=== PATIENT | male | born 1955 | race Caucasian/White ===

== ENCOUNTER 2022-11-09 14:09 | Emergency (ER) | payer MEDICARE, BC, SELFPAY ==
[2022-11-09] VITALS (10 sets, daily range): BP systolic 146–182; BP diastolic 75–99; PULSE 53–65; RESP 16–20; TEMP 37.1; O2SAT 93–99; BMI 33.9
--- NOTE | 2022-11-09 14:23 | DI.RAD.S_ITS ---
PROCEDURE: XR CHEST 1V INDICATIONS: chest pain TECHNIQUE: One view of the chest was acquired. COMPARISON: None. FINDINGS: Surgical changes and devices: None. Lungs and pleura: Lungs are clear. No pleural effusions or pneumothorax. Mediastinum: Mediastinal contours appear normal. Heart size is mildly prominent. Bones and chest wall: No suspicious bony lesions. Overlying soft tissues appear unremarkable. IMPRESSION: Portable chest within normal limits for age. Dictated by: Katarina Mckenna M.D. on 11/09/2022 at 14:42 Approved by: Katarina Mckenna M.D. on 11/09/2022 at 14:42
[2022-11-09 15:08] LABS: Alanine Aminotransferase 48 IU/L (<50); Albumin 4.2 g/dL (3.5-5.0); Albumin Globulin Ratio 1.4 (1.0-2.8); Alkaline Phosphatase 74 U/L (38-126); Aspartate Aminotransferase 40 IU/L (17-59); BUN Creatinine Ratio 15.8 (6-22); Bilirubin Total 0.7 mg/dL (0.2-1.3); Blood Urea Nitrogen 16 mg/dL (9-20); Calcium 8.9 mg/dL (8.4-10.2); Carbon Dioxide 24 mmol/L (22-32); Chloride 108 mmol/L (98-107); Creatine Kinase 132 U/L (55-170); Estimated Glomerular Filt Rate > 60 mL/min (>60); Globulin 2.9 g/dL (1.7-4.1); Glucose 89 mg/dL (80-110); HEMOLYSIS 26 (0-50); Lipase 130 U/L (23-300); Magnesium 1.9 mg/dL (1.6-2.3); Potassium 4.3 mmol/L (3.4-5.1); Sodium 139 mmol/L (137-145); Total Protein 7.1 g/dL (6.3-8.2)
[2022-11-09 15:18] LABS: Troponin I < 0.012 ng/mL (0.01-0.034)
[2022-11-09 15:20] LABS: Prothrombin Time 11.5 SECONDS (10.1-12.7)
[2022-11-09 15:22] LABS: PTT Partial Thromboplastin Tim 29 SECONDS (26-36)
[2022-11-09 15:28] LABS: Add Manual Diff / Slide Review NO; Basophils Absolute Auto 0 /uL (0-100); Basophils Percent Auto 0.2 % (0-2); Eosinophils Absolute Auto 0 /uL (0-450); Eosinophils Percent Auto 0.9 % (2-4); Hematocrit 38.6 % (41-53); Hemoglobin 13.2 g/dL (13.5-17.5); Lymphocytes Absolute Auto 800 /uL (1100-4500); Lymphocytes Percent Auto 14.8 % (25-40); Mean Corpuscular HGB Conc 34.2 % (30-36); Mean Corpuscular Hemoglobin 30.9 PG (26-34); Mean Corpuscular Volume 90.5 fL (80-100); Monocytes Absolute Auto 600 /uL (0-900); Monocytes Percent Auto 10.2 % (3-14); Neutrophils Absolute Auto 4000 /uL (1500-7000); Neutrophils Percent Auto 73.9 % (50-75); Platelet Count 166 X10^3/uL (150-400); Red Blood Cell Count 4.27 X10^6/uL (4.5-5.9); Red Cell Distribution Width 12.9 % (11.6-14.8); White Blood Cell Count 5.4 X10^3/uL (4.5-11.0)
[2022-11-09 17:59] LABS: Troponin I < 0.012 ng/mL (0.01-0.034)
--- NOTE | 2022-11-09 18:58 | ED_ITS ---
HPI - Chest Pain General Chief Complaint: Chest Pain Stated Complaint: chest pain/High BP/ HX heart issues Time Seen by Provider: 11/09/22 18:03 Source: patient Mode of arrival: Ambulatory Limitations: no limitations History of Present Illness HPI narrative: Patient is a 67-year-old male. Has a known history of coronary artery disease. Had a HI about a year and a half ago. Has had stents since then had the middle of this year. He is nitro at home. Has a history of high blood pressure. He states that he was at home. 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 Was gone up and down a flight of stairs. Started to have some chest discomfort that has been consistent since about 0900 hours this morning. He did take some nitroglycerin with potentially some relief. No shortness of breath. He did take his blood pressure and it was elevated. No fevers. No abdominal pain or nausea vomiting. No diaphoresis. No lower extremity swelling. Related Data Allergies Allergy/AdvReac Type Severity Reaction Status Date / Time No Known Drug Allergies Allergy Verified 11/09/22 14:17 Review of Systems Constitutional Constitutional: Reports system reviewed and no additional complaints, except as documented Cardiovascular Cardiovascular: Reports system reviewed and no additional complaints, except as documented Respiratory Respiratory: Reports system reviewed and no additional complaints, except as documented Gastrointestinal Gastrointestinal: Reports system reviewed and no additional complaints, except as documented Integumentary/Breasts Skin/Breast: Reports system reviewed and no additional complaints, except as documented Neurologic Neurologic: Reports system reviewed and no additional complaints, except as documented Patient History Social History Smoking Status: Never smoker Smoking Status: Never smoker alcohol intake frequency: a few times a week Alcohol type: wine Substance Use Type: does not use Exam Initial Vital Signs Initial Vital Signs: Vital Signs Temperature 98.8 F 11/09/22 14:17 Pulse Rate 65 11/09/22 14:17 Respiratory Rate 16 11/09/22 14:17 Blood Pressure 182/81 H 11/09/22 14:17 Pulse Oximetry 99 11/09/22 14:17 Oxygen Delivery Method Room Air 11/09/22 14:17 Const General: cooperative, comfortable and No ill appearing HENMT Head: normal to inspection and normocephalic Resp Effort & Inspection: normal respiratory effort Auscultation: clear to auscultation bilaterally Cardio Rate: regular rate Rhythm: regular rhythm GI Inspection: normal to inspection Skin General: no rashes or lesions noted Neuro General: patient alert, patient awake, patient oriented x3 and moves all extremities Extrem General: normal to inspection and capillary refill normal Course Orders Ordered: ED Orders 11/09/22 17:20 Trop I [Troponin I] Stat Discontinued Medications Aspirin (Aspirin 81 Mg Chew Tab) 324 mg PO NOW ONE Stop: 11/09/22 14:24 Last Admin: 11/09/22 19:00 Dose: Not Given Documented By: SPF Vital Signs Vital signs: Vital Signs - 8 hr 11/09/22 17:30 11/09/22 17:30 11/09/22 18:00 Pulse Rate 55 L 56 L Respiratory Rate 17 17 Blood Pressure 165/81 H Pulse Oximetry 99 98 Oxygen Delivery Method Room Air 11/09/22 18:01 11/09/22 18:01 11/09/22 18:30 Pulse Rate 65 Respiratory Rate 20 Blood Pressure 155/81 H 174/87 H Pulse Oximetry 97 Oxygen Delivery Method Room Air 11/09/22 18:30 11/09/22 18:38 11/09/22 18:38 Pulse Rate 56 L 57 L Respiratory Rate 16 18 Blood Pressure 176/99 H Pulse Oximetry 99 93 Oxygen Delivery Method Room Air 11/09/22 19:00 11/09/22 19:00 Pulse Rate 55 L Respiratory Rate 17 Blood Pressure 153/88 H Pulse Oximetry 97 Oxygen Delivery Method Room Air MDM - Chest Pain Lab Data Attestation: I reviewed the patient's lab results. 11/09/22 15:01 11/09/22 14:41 Labs: Lab Results 11/09/22 11/09/22 11/09/22 Range/Units 14:41 15:01 15:01 WBC 5.4 (4.5-11.0) X10^3/uL RBC 4.27 L (4.5-5.9) X10^6/uL Hgb 13.2 L (13.5-17.5) g/dL Hct 38.6 L (41-53) % MCV 90.5 (80-100) fL MCH 30.9 (26-34) PG MCHC 34.2 (30-36) % RDW 12.9 (11.6-14.8) % Plt Count 166 (150-400) X10^3/uL Neut % (Auto) 73.9 (50-75) % Lymph % (Auto) 14.8 L (25-40) % Foster % (Auto) 10.2 (3-14) % Eos % (Auto) 0.9 L (2-4) % Baso % (Auto) 0.2 (0-2) % Neut # (Auto) 4000 (5440-8793) /uL Lymph # (Auto) 800 L (6714-9467) /uL Foster # (Auto) 600 (0-900) /uL Eos # (Auto) 0 (0-450) /uL Baso # (Auto) 0 (0-100) /uL PT 11.5 (10.1-12.7) SECONDS INR 1.0 (0.9-1.3) APTT 29 (26-36) SECONDS Sodium 139 (137-145) mmol/L Potassium 4.3 (3.4-5.1) mmol/L Chloride 108 H (98-107) mmol/L Carbon Dioxide 24 (22-32) mmol/L BUN 16 (9-20) mg/dL Creatinine 1.01 (0.66-1.25) mg/dL Estimated GFR > 60 (>60) mL/min BUN/Creatinine Ratio 15.8 (6-22) Glucose 89 (80-110) mg/dL Calcium 8.9 (8.4-10.2) mg/dL Magnesium 1.9 (1.6-2.3) mg/dL Total Bilirubin 0.7 (0.2-1.3) mg/dL AST 40 (17-59) IU/L ALT 48 (<50) IU/L Alkaline Phosphatase 74 (38-126) U/L Total Creatine Kinase 132 (55-170) U/L Troponin I < 0.012 (0.01-0.034) ng/mL Total Protein 7.1 (6.3-8.2) g/dL Albumin 4.2 (3.5-5.0) g/dL Globulin 2.9 (1.7-4.1) g/dL Albumin/Globulin Ratio 1.4 (1.0-2.8) Lipase 130 (23-300) U/L 11/09/22 Range/Units 17:20 WBC (4.5-11.0) X10^3/uL RBC (4.5-5.9) X10^6/uL Hgb (13.5-17.5) g/dL Hct (41-53) % MCV (80-100) fL MCH (26-34) PG MCHC (30-36) % RDW (11.6-14.8) % Plt Count (150-400) X10^3/uL Neut % (Auto) (50-75) % Lymph % (Auto) (25-40) % Foster % (Auto) (3-14) % Eos % (Auto) (2-4) % Baso % (Auto) (0-2) % Neut # (Auto) (7511-3280) /uL Lymph # (Auto) (8538-1128) /uL Foster # (Auto) (0-900) /uL Eos # (Auto) (0-450) /uL Baso # (Auto) (0-100) /uL PT (10.1-12.7) SECONDS INR (0.9-1.3) APTT (26-36) SECONDS Sodium (137-145) mmol/L Potassium (3.4-5.1) mmol/L Chloride (98-107) mmol/L Carbon Dioxide (22-32) mmol/L BUN (9-20) mg/dL Creatinine (0.66-1.25) mg/dL Estimated GFR (>60) mL/min BUN/Creatinine Ratio (6-22) Glucose (80-110) mg/dL Calcium (8.4-10.2) mg/dL Magnesium (1.6-2.3) mg/dL Total Bilirubin (0.2-1.3) mg/dL AST (17-59) IU/L ALT (<50) IU/L Alkaline Phosphatase (38-126) U/L Total Creatine Kinase (55-170) U/L Troponin I < 0.012 (0.01-0.034) ng/mL Total Protein (6.3-8.2) g/dL Albumin (3.5-5.0) g/dL Globulin (1.7-4.1) g/dL Albumin/Globulin Ratio (1.0-2.8) Lipase (23-300) U/L Imaging Data Chest x-ray: Radiologist's Impression: PROCEDURE:? XR CHEST 1V ? INDICATIONS:? chest pain ? TECHNIQUE:? One view of the chest was acquired.? ? COMPARISON:? None. ? FINDINGS:? ? Surgical changes and devices:? None.? ? Lungs and pleura:? Lungs are clear.? No pleural effusions or pneumothorax.? ? Mediastinum:? Mediastinal contours appear normal.? Heart size is mildly prominent. ? Bones and chest wall:? No suspicious bony lesions.? Overlying soft tissues appear unremarkable.? ? ? IMPRESSION:? Portable chest within normal limits for age. ECG Data Attestation: I personally reviewed and interpreted this ECG as follows: Interpretation: Sinus rhythm Ventricular rate is 61 Normal axis Normal QRS Normal QTC No ST T wave changes MDM Narrative Medical decision making narrative: Chest x-ray, EKG, labs are all unremarkable. He is had consistent pain for greater than 6 hours in his troponins are negative. Was slightly hypertensive upon arrival here however I have low suspicion for acute HI, heart failure, renal failure or intracranial bleed. Patient has a behavioral health specialist back in [place] where he lives. We did discuss checking his blood pressure at home and potentially increasing his blood pressure medications however he stated that his behavioral health specialist told him that he should just take nitro. Told him that this not be unreasonable. We will discharge patient home with strict return precautions and instructions to follow-up with his behavioral health specialist. He expressed understanding and agreement with plan. Discharge Plan Departure Patient Disposition: Home Clinical Impression: Chest pain, Hypertension Instructions: High Blood Pressure Activity Restrictions/Additional Instructions: I recommend that you continue to take all of your medications as directed. Continue to take your blood pressure at home over the weekend like we discussed. If you have any new or worsening symptoms please return to the emergency department. Contact your behavioral health specialist for a follow-up. Referrals: Doctor Tobias MD [Primary Care Provider] - Stand Alone Forms: Patient Portal/API
== END 2022-11-09 19:11 | disposition home or self-care (01) ==
PROVIDERS: Emergency Medicine; Emergency Provider Emergency Medicine
DX: R07.9 Chest pain, unspecified (principal); I10 Essential (primary) hypertension
CPT/HCPCS: 36415; 71045; 80053; 82550; 83690; 83735; 84484; 85025; 85610; 85730; 93005; 93010; 99284